=== PATIENT | female | born 1970 | race Caucasian/White ===

== ENCOUNTER 2018-02-05 03:12 | Emergency (ER) | payer OTHER ==
--- NOTE | 2018-02-05 03:36 | EDM.PDOC ---
ED HPI GENERAL MEDICAL PROBLEM - General Chief Complaint: Lower Extremity Injury/Pain Stated Complaint: PAIN IN LEFT LEG AND FOOT Time Seen by Provider: 02/05/18 03:21 - History of Present Illness INITIAL COMMENTS - FREE TEXT/NARRATIVE: HISTORY AND PHYSICAL: History of present illness: The patient is a 47-year-old female with a several year history of insulin requiring diabetes which he states initially was poorly controlled but lately has been under better control and for which she sees a doctor in [place] where she lives; the patient presents tonight stating that starting yesterday she is been having numbness and some vague discomfort to the dorsal aspect of her left foot going up to her ankle but that does not include the sole and the lateral/medial aspects of the foot. The patient does have a history of sciatica in the past and says that there is no back pain and nothing originates from her back or travels proximal to distally and it is only located across the entire aspect of the dorsal foot. She has had no trauma there and has no temperature changes and says that there is discomfort with certain movements. She says she is mostly concerned about the numbness and thought she should come in and get it checked out. Patient says she has not at the foot in an odd position recently and she has no other systemic complaints of fever chills chest pain shortness of breath abdominal pain vomiting or diarrhea and has no bowel or bladder disturbances. Patient says that the numbness that she is feeling does not travel past her ankle and there is no other sensation of numbness or tingling elsewhere on her body. Patient has no calf tenderness Review of systems: As per history of present illness and below otherwise all systems reviewed and negative. Past medical history: As per history of present illness and as reviewed below otherwise noncontributory. Surgical history: As per history of present illness and as reviewed below otherwise noncontributory. Social history: No reported history of drug or alcohol abuse. Family history: As per history of present illness and as reviewed below otherwise noncontributory. Physical exam: General: Well-developed well-nourished female who is nontoxic and who ambulated into the ED without distress HEENT: Atraumatic, normocephalic, negative for conjunctival pallor or scleral icterus, mucous membranes moist, throat clear, neck supple, nontender, trachea midline. Lungs: Clear to auscultation, breath sounds equal bilaterally, chest nontender. Heart: S1S2, regular, negative for clicks, rubs, or JVD. Abdomen: Soft, nondistended, nontender. Negative for masses or hepatosplenomegaly. Negative for costovertebral tenderness. Pelvis: Stable nontender. Genitourinary: Deferred. Rectal: Deferred. Extremities: Atraumatic, negative for cords or calf pain. Neurovascular unremarkable. At the left foot there is no swelling or temperature changes and there are no skin changes seen such as erythema ecchymosis. There are no palpable bony deformities of the foot and there is no discrete tenderness with palpation. On simple touch and pressure the patient says that she has decreased sensation on the dorsal aspect of the foot but that she can feel me touching the bottom of her foot her heel and her ankle. Patient has good pulses dorsalis pedis and posterior tib bilaterally. There is no size discrepancy in the legs or feet and no edema Neuro: Awake, alert, oriented. Cranial nerves II through XII unremarkable. Cerebellum unremarkable. Motor and sensory unremarkable throughout. Exam nonfocal. Dorsi and plantar flexion are intact 5/5 inclusive of the great toe but the patient initially was exhibiting a very poor effort on the left because she says that it "feels numb" . When I push her she was able to respond and perform the task with good strength. Patient gait was intact and she ambulated into the ED without assistance Back: There are no midline step-offs tenderness defects of the thoracic or lumbar spine and no posterior pelvis or sciatic discomfort on palpation. Diagnostics: CBC CMP magnesium hemoglobin A1c Therapeutics: [] I discussed with the patient that this numbness/paresthesia that she is having on the dorsal aspect of the foot does not follow any one dermatome or nerve root and as it originates distally traveling proximally is more likely a peripheral nerve issue. We will check basic labs to see if there is a metabolic reason for this but she has a scheduled appointment with her provider at home on Sunday and I advised her that she would probably need to continue working with her for more evaluation . Impression: Paresthesias/numbness dorsal aspect of left foot, etiology unclear, history of diabetes rule out neuropathy Definitive disposition and diagnosis as appropriate pending reevaluation and review of above. left foot Pain Score (Numeric/FACES): 3 - Related Data Allergies Allergy/AdvReac Type Severity Reaction Status Date / Time No Known Allergies Allergy Verified 02/05/18 03:25 Home Meds: Home Meds Insulin Detemir [Levemir] 22 units SQ BID 02/05/18 [History] Lurasidone HCl [Latuda] 40 mg PO DAILY 02/05/18 [History] Vybrid 1 tab PO DAILY 02/05/18 [History] buPROPion [Wellbutrin] 1 tab PO BEDTIME 02/05/18 [History] busPIRone [Buspar] 15 mg PO TID 02/05/18 [History] metFORMIN [Glucophage] 500 mg PO BIDMEALS 02/05/18 [History] Past Medical History HEENT History: Reports: None Cardiovascular History: Reports: None Respiratory History: Reports: COPD Gastrointestinal History: Reports: None Genitourinary History: Reports: None Musculoskeletal History: Reports: None Neurological History: Reports: None Psychiatric History: Reports: Depression Endocrine/Metabolic History: Reports: Diabetes, Type II Hematologic History: Reports: None Immunologic History: Reports: None Oncologic (Cancer) History: Reports: None Dermatologic History: Reports: None - Infectious Disease History Infectious Disease History: Reports: None - Past Surgical History Head Surgeries/Procedures: Reports: None Female Surgical History: Reports: Tubal Ligation Social & Family History - Family History Family Medical History: Noncontributory - Tobacco Use Smoking Status *Q: Current Every Day Smoker Years of Tobacco use: 30 Packs/Tins Daily: 0.5 - Caffeine Use Caffeine Use: Reports: Coffee - Recreational Drug Use Recreational Drug Use: No Review of Systems - Review of Systems Review Of Systems: ROS reveals no pertinent complaints other than HPI. ED EXAM, GENERAL - Physical Exam Exam: See Below (See dictation) Course - Vital Signs Last Recorded V/S: Last Vital Signs Temp 36.1 C 02/05/18 03:25 Pulse 83 02/05/18 03:25 Resp 18 02/05/18 03:25 BP 142/96 H 02/05/18 03:25 Pulse Ox 97 02/05/18 03:25 - Orders/Labs/Meds Labs: Laboratory Tests 02/05/18 02/05/18 02/05/18 Range/Units 03:40 03:40 03:40 WBC 7.74 (4.0-11.0) K/uL RBC 5.02 (4.30-5.90) M/uL Hgb 14.9 (12.0-16.0) g/dL Hct 44.6 (36.0-46.0) % MCV 88.8 (80.0-98.0) fL MCH 29.7 (27.0-32.0) pg MCHC 33.4 (31.0-37.0) g/dL RDW Std Deviation 54.5 (28.0-62.0) fl RDW Coeff of Kervin 17 H (11.0-15.0) % Plt Count 177 (150-400) K/uL MPV 10.00 (7.40-12.00) fL Neut % (Auto) 49.2 (48.0-80.0) % Lymph % (Auto) 40.7 H (16.0-40.0) % Bowman % (Auto) 7.0 (0.0-15.0) % Eos % (Auto) 2.8 (0.0-7.0) % Baso % (Auto) 0.3 (0.0-1.5) % Neut # (Auto) 3.8 (1.4-5.7) K/uL Lymph # (Auto) 3.2 H (0.6-2.4) K/uL Bowman # (Auto) 0.5 (0.0-0.8) K/uL Eos # (Auto) 0.2 (0.0-0.7) K/uL Baso # (Auto) 0.0 (0.0-0.1) K/uL Nucleated RBC % 0.0 /100WBC Nucleated RBCs # 0 K/uL Sodium 141 (136-145) mmol/L Potassium 3.5 (3.5-5.1) mmol/L Chloride 104 (98-107) mmol/L Carbon Dioxide 25.9 (21.0-32.0) mmol/L BUN 8 (7.0-18.0) mg/dL Creatinine 0.9 (0.6-1.0) mg/dL Est Cr Clr Drug Dosing 72.34 mL/min Estimated GFR (MDRD) > 60.0 ml/min Glucose 120 H (74-106) mg/dL Hemoglobin A1c 6.7 H (4.5-6.2) % Calcium 9.1 (8.5-10.1) mg/dL Magnesium 2.0 (1.5-2.0) mg/dL Total Bilirubin 0.3 (0.2-1.0) mg/dL AST 37 (15-37) IU/L ALT 96 H (14-63) IU/L Alkaline Phosphatase 128 H (46-116) U/L Total Protein 6.9 (6.4-8.2) g/dL Albumin 3.7 (3.4-5.0) g/dL Globulin 3.2 (2.0-3.5) g/dL Albumin/Globulin Ratio 1.2 L (1.3-2.8) Departure - Departure Time of Disposition: 04:44 Disposition: Home, Self-Care 01 Condition: Good Clinical Impression: Paresthesia of left foot - Discharge Information Referrals: PCP,None [Primary Care Provider] - Forms: ED Department Discharge Additional Instructions: The following information is given to patients seen in the emergency department who are being discharged to home. This information is to outline your options for follow-up care. We provide all patients seen in our emergency department with a follow-up referral. The need for follow-up, as well as the timing and circumstances, are variable depending upon the specifics of your emergency department visit. If you don't have a primary care physician on staff, we will provide you with a referral. We always advise you to contact your personal physician following an emergency department visit to inform them of the circumstance of the visit and for follow-up with them and/or the need for any referrals to a consulting specialist. The emergency department will also refer you to a specialist when appropriate. This referral assures that you have the opportunity for followup care with a specialist. All of these measure are taken in an effort to provide you with optimal care, which includes your followup. Under all circumstances we always encourage you to contact your private physician who remains a resource for coordinating your care. When calling for followup care, please make the office aware that this follow-up is from your recent emergency room visit. If for any reason you are refused follow-up, please contact the [facility] emergency department at and ask to speak to the emergency department charge nurse. [facility] Primary care- Internal Medicine and Family [place] [phone] Please keep your appointment as scheduled this week with your provider at home for follow-up with one of our clinic providers if you choose to stay in the area using resources given to above. Return to ER as needed and as discussed
[2018-02-05 04:33] LABS: CHLORIDE,CL 104 mmol/L (98-107); SODIUM,NA 141 mmol/L (136-145)
== END 2018-02-05 04:55 | disposition home or self-care (01) ==
LOC: MW.ED 03:12
DX: R20.2 Paresthesia of skin (principal); J44.9 Chronic obstructive pulmonary disease, unspecified; E11.9 Type 2 diabetes mellitus without complications; F17.210 Nicotine dependence, cigarettes, uncomplicated; Z79.4 Long term (current) use of insulin; Z79.899 Other long term (current) drug therapy; Z79.84 Long term (current) use of oral hypoglycemic drugs
CPT/HCPCS: 36415; 80053; 83036; 83735; 85025; 99283